=== PATIENT | female | born 2000 | race Caucasian/White ===

== ENCOUNTER 2023-01-27 10:46 | Emergency (ER) | payer OTHER ==
[~2023-01-27] VITALS: Ht 157.5 cm; Wt 59.9 kg
--- NOTE | 2023-01-27 11:02 | NUR ---
PT. WALKED OT BED 11
[2023-01-27 11:14] VITALS: BP 114/76; PULSE 82; RESP 18; TEMP 97.8; O2SAT 98
--- NOTE | 2023-01-27 11:36 | NUR ---
PA at BS evaluating pt at BS.
--- NOTE | 2023-01-27 11:53 | NUR ---
Assisted PA w/ Pelvic exam.
--- NOTE | 2023-01-27 11:54 | NUR ---
Taking wet mount, culture, and urine to lab.
[2023-01-27 12:23] LABS: BILIRUBIN,URINE NEGATIVE (NEGATIVE); BLOOD, URINE NEGATIVE (NEGATIVE); COLOR,URINE YELLOW (YELLOW); LEUKOCYTE ESTERASE ,URINE 2+ (NEGATIVE); NITRITE, URINE NEGATIVE (NEGATIVE); UGLUCOSE NEGATIVE (NEGATIVE)
--- NOTE | 2023-01-27 12:28 | NUR ---
Pt awaiting pending lab results.
[2023-01-27 12:29] LABS: APPEARANCE,URINE HAZY (CLEAR)
[2023-01-27 12:38] LABS: CALCIUM OXALATE CRYSTALS,UR None Seen /HPF (None Seen); COARSE GRANULAR CASTS,URINE None Seen /LPF (None Seen); FINE GRANULAR CASTS,URINE None Seen /LPF (None Seen); HYALINE CASTS, URINE None Seen /LPF (None Seen); OTHER CASTS, URINE None Seen /LPF (None Seen); OTHER CRYSTALS,URINE None Seen /HPF (None Seen); RBC,URINE 0-5 /HPF (0-5); RED BLOOD CELL CASTS,URINE None Seen /LPF (None Seen); TRICHOMONAS,URINE None Seen /HPF (None Seen); TRIPLE PHOSPHATE CRYSTAL,UR None Seen /HPF (None Seen); URIC ACID CRYSTALS,URINE None Seen /HPF (None Seen); URINE AMORPHOUS URATE None Seen /HPF (None Seen); WAXY CASTS,URINE None Seen /LPF (None Seen); YEAST,URINE None Seen /HPF (None Seen)
[2023-01-27] MEDS ORDERED: FLUC150T PO (12:46)
[2023-01-27] MEDS ORDERED: NITR100C7 PO (12:46)
[2023-01-27] MEDS ORDERED: LOTC TP (12:46)
[2023-01-27 13:04] VITALS: BP 99/63; PULSE 74; RESP 18; TEMP 97.1; O2SAT 97
--- NOTE | 2023-01-27 13:09 | NUR ---
Patient discharged with v/s stable. Written and verbal after care instructions given and explained. Patient alert, oriented and verbalized understanding of instructions. Ambulatory with steady gait. All questions addressed prior to discharge. ID band removed. Patient advised to follow up with PMD. Rx of Diflucan, Lotrimin, and Macrobid given. Patient educated on indication of medication including possible reaction and side effects. Opportunity to ask questions provided and answered.
== END 2023-01-27 13:04 | disposition home or self-care (01) ==
LOC: MED 10:46
DX: B37.31 Acute candidiasis of vulva and vagina (principal); N39.0 Urinary tract infection, site not specified; Z79.899 Other long term (current) drug therapy; Z79.2 Long term (current) use of antibiotics
CPT/HCPCS: 81001; 81025; 87070; 87086; 87210; 99284

== ENCOUNTER 2023-04-16 12:56 | Emergency (ER) | payer OTHER ==
[~2023-04-16] VITALS: Ht 157.5 cm; Wt 58.5 kg
[~2023-04-16 12:56] MED LIST: FLUC150T PO; LOTC TP; NITR100C7 PO
[2023-04-16 13:21] VITALS: BP 115/66; PULSE 62; RESP 17; TEMP 97.7; O2SAT 100
[2023-04-16] MEDS ORDERED: IBUPROFEN 600 MG TAB PO ONE (13:40)
[2023-04-16] MEDS ORDERED: IBUP-2213 PO (14:54)
== END 2023-04-16 15:03 | disposition home or self-care (01) ==
LOC: MED 12:56
DX: M79.671 Pain in right foot (principal)
CPT/HCPCS: 73630; 99283

== ENCOUNTER 2023-04-22 10:16 | Emergency (ER) | payer OTHER ==
[~2023-04-22] VITALS: Ht 162.6 cm; Wt 59.0 kg
[~2023-04-22 10:16] MED LIST changes: +IBUP-2213 PO
[2023-04-22 10:50] VITALS: BP 117/71; PULSE 76; RESP 18; TEMP 97.6; O2SAT 98
[2023-04-22] MEDS ORDERED: [UNRECOGNIZED DRUG - REMARK] (12:26)
[2023-04-22 12:35] VITALS: BP 117/71; PULSE 76; RESP 18; TEMP 97.6; O2SAT 98
== END 2023-04-22 12:35 | disposition home or self-care (01) ==
LOC: MED 10:16
DX: M79.671 Pain in right foot (principal); Z79.899 Other long term (current) drug therapy
CPT/HCPCS: 99281

== ENCOUNTER 2023-08-25 11:45 | Emergency (ER) | payer OTHER ==
[~2023-08-25] VITALS: Ht 157.5 cm; Wt 61.2 kg
[~2023-08-25 11:45] MED LIST changes: +[UNRECOGNIZED DRUG - REMARK]
[2023-08-25 11:54] VITALS: BP 126/80; PULSE 80; RESP 16; TEMP 97.5; O2SAT 100
[2023-08-25 12:17] LABS: EOSINOPHILS # (AUTO) 0.2 K/uL (0-0.4); EOSINOPHILS % (AUTO) 4.1 % (0.0-4.0); HEMATOCRIT 38.3 % (36-48); HEMOGLOBIN 13.6 g/dL (12.0-16.0); LYMPHOCYTES # (AUTO) 1.8 K/uL (2.5-16.5); LYMPHOCYTES % (AUTO) 38.9 % (20.5-51.1); MEAN CORPUSCULAR HEMOGLOBIN 30 pg (27-31); MEAN CORPUSCULAR HGB CONC 36 g/dL (33-37); MEAN CORPUSCULAR VOLUME 84.5 fL (80-94); MONOCYTES # (AUTO) 0.4 K/uL (0.8-1.0); MONOCYTES % (AUTO) 7.7 % (1.7-9.3); NEUTROPHILS # (AUTO) 2.2 K/uL (1.8-7.7); NEUTROPHILS % (AUTO) 48.3 % (42.2-75.2); PLATELET COUNT (AUTO) 263 K/uL (140-450); RED BLOOD CELL COUNT(AUTO) 4.53 MIL/uL (4.20-5.40); RED CELL DISTRIBUTION WIDTH 13.5 % (11.6-13.7); WHITE BLOOD COUNT (AUTO) 4.6 K/uL (4.8-10.8)
[2023-08-25 12:20] LABS: APPEARANCE,URINE CLEAR (CLEAR); BILIRUBIN,URINE NEGATIVE (NEGATIVE); BLOOD, URINE NEGATIVE (NEGATIVE); COLOR,URINE YELLOW (YELLOW); LEUKOCYTE ESTERASE ,URINE NEGATIVE (NEGATIVE); NITRITE, URINE NEGATIVE (NEGATIVE); PH,URINE 7.5 (5.0-9.0); PROTEIN,URINE NEGATIVE (NEGATIVE); UGLUCOSE NEGATIVE (NEGATIVE); UROBILINOGEN,URINE 0.2 EU/dL (0.2 - 1)
[2023-08-25 12:36] VITALS: O2SAT 100
[2023-08-25 12:37] LABS: ANION GAP 7.4 (8-16); CALCIUM 8.9 mg/dL (8.5-10.1); CARBON DIOXIDE 30.2 mmol/L (21-32); CREATININE 0.7 mg/dL (0.6-1.3); POTASSIUM 3.6 mmol/L (3.5-5.1); TOTAL BILIRUBIN 0.8 mg/dL (0.0-1.0); TOTAL PROTEIN, SERUM 8.8 g/dL (6.4-8.2)
[2023-08-25] MEDS ORDERED: POLYETHYLENE GLYCOL 17 GM/PKT PO ONE (13:25)
[2023-08-25] MEDS ORDERED: DOCUSATE SODIUM 100 MG GELCAP PO PRN (13:25)
[2023-08-25] MEDS ORDERED: SIMETHICONE 40 MG/0.6 ML PO ONE (13:25)
[2023-08-25] MEDS ORDERED: DOCU-299 PO (14:09)
[2023-08-25] MEDS ORDERED: POLY17PD72 PO (14:09)
[2023-08-25] MEDS ORDERED: SIME80TA41 PO (14:09)
[2023-08-25 14:11] VITALS: BP 122/78; PULSE 74; RESP 18; TEMP 98.2; O2SAT 100
== END 2023-08-25 14:29 | disposition home or self-care (01) ==
LOC: MED 11:45
DX: K59.00 Constipation, unspecified (principal); R14.1 Gas pain; R14.0 Abdominal distension (gaseous); Z79.899 Other long term (current) drug therapy
CPT/HCPCS: 36415; 80053; 81003; 81025; 83690; 85025; 99284

== ENCOUNTER 2024-04-20 18:52 | Emergency (ER) | payer OTHER ==
[~2024-04-20 18:52] MED LIST changes: +DOCU-299 PO; +POLY17PD72 PO; +SIME80TA41 PO
== END 2024-04-20 20:17 | disposition left against medical advice (07) ==
LOC: MED 18:52
DX: Z53.21 Procedure and treatment not carried out due to patient leaving prior to being seen by health care provider (principal)